=== PATIENT | female | born 1960 | race Caucasian/White ===

== ENCOUNTER 2018-12-12 12:48 | Inpatient (IN) | payer OTHER ==
[2018-12-12 13:34] VITALS: BMI 29.2
--- NOTE | 2018-12-12 15:33 | HP ---
COWS - Scale Resting Pulse: 1= RI 81-100 Sweatin=Flushed/Facial Moisture Restless Observation: 1= Difficult to Sit Still Pupil Size: 0= Normal to Room Light Bone or Joint Aches: 2= Severe Diffuse Aches Runny Nose/ Eye Tearin= Runny Nose/Eyes GI Upset > 30mins: 3= Vomiting/Diarrhea Tremor Observation: 2= Slight Tremor Visible Yawning Observation: 2= >3x During Session Anxiety or Irritability: 4=Extreme Anxiety Goose Flesh Skin: 3=Piloerection COWS Score: 22 CIWA Score - Admission Criteria OASAS Guidelines: Admission for Medically Managed Detox: Requires at least one of the followin. CIWA greater than 12 2. Seizures within the past 24 hours 3. Delirium tremens within the past 24 hours 4. Hallucinations within the past 24 hours 5. Acute intervention needed for co occurring medical disorder 6. Acute intervention needed for co occurring psychiatric disorder 7. Severe withdrawal that cannot be handled at a lower level of care (continued vomiting, continued diarrhea, abnormal vital signs) requiring intravenous medication and/or fluids 8. Admitting History and Physical - Admission History Source: Patient Limitations to Obtaining History: No Limitations Admission ROS [facility] Chief Complaint: Merle Hopson is a 58 year old female who is presenting for heroin detox. Allergies/Adverse Reactions: Allergies Allergy/AdvReac Type Severity Reaction Status Date / Time No Known Allergies Allergy Verified 12/12/18 13:18 History of Present Illness: Merle Hopson is a 58 year old female who is presenting for heroin detox. Heroin: uses 4-5 bags per day. Last use was 2 days prior. Has been using for 17 years. Inhales. Denies IVDU. Denies overdose. Denies having a Narcan kit at home and has never used one. Has never been on a methadone maintenance program. Has been on methadone in the past for pain. Has more than 1 dealer. Denies use of other substances. Has been on several drugs methadone, oxy, benzos in the last couple of days to try and help the symptoms of withdrawal. Has never been detox in the past. Has been to rehab many years in the past. Is interested in outpatient rehab after completing detox because she has a job that she wants to go back to. Wants to go on a methadone program. 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 - Ebola screening Have you traveled outside of the country in the last 21 days: No Have you had contact with anyone from an Ebola affected area: No Do you have a fever: No - Review of Systems Constitutional: Chills, Loss of Appetite, Weakness EENT: reports: Nose Congestion, Other (rhinnorhea) Respiratory: reports: No Symptoms reported Cardiac: reports: Palpitations GI: reports: Diarrhea, Nausea, Vomiting, Abdominal cramping : reports: No Symptoms Reported Musculoskeletal: reports: Back Pain, Muscle Pain, Neck Pain Integumentary: reports: No Symptoms Reported Neuro: reports: Headache, Tremors, Weakness Endocrine: reports: No Symptoms Reported Hematology: reports: Blood Clots Psychiatric: reports: Judgement Intact, Agitated, Anxious, Depressed Patient History - Patient Medical History Hx Anemia: No Hx Asthma: Yes Hx Chronic Obstructive Pulmonary Disease (COPD): No Hx Cancer: No (has lump on breast she is being followed for) Hx Cardiac Disorders: No Hx Congestive Heart Failure: No Hx Hypertension: No Hx Hypercholesterolemia: No Hx Pacemaker: No HX Cerebrovascular Accident: Yes (hx of weakness on one side, no residual weakness) Hx Seizures: Yes (?hx when found unconscious, not secondary to an overdose) Hx Dementia: No Hx Diabetes: No Hx Gastrointestinal Disorders: No Hx Liver Disease: No Hx Genitourinary Disorders: No Hx Sexually Transmitted Disorders: No Hx Renal Disease (ESRD): No Hx Thyroid Disease: No Hx Human Immunodeficiency Virus (HIV): No Hx Hepatitis C: No Hx Depression: Yes Hx Suicide Attempt: No Hx Bipolar Disorder: No Hx Schizophrenia: No - Patient Surgical History Hx Neurologic Surgery: No Hx Cataract Extraction: No Hx Cardiac Surgery: No Hx Lung Surgery: No Hx Breast Surgery: No Hx Breast Biopsy: No Hx Abdominal Surgery: No Hx Appendectomy: No Hx Cholecystectomy: No Hx Genitourinary Surgery: No Hx Section: No Hx Orthopedic Surgery: No Hx Hysterectomy: Yes Other Surgical History: hx of blood clot removal - PPD History Previous Implant?: No Documented Results: Negative w/o proof Implanted On Prior [facility] Admission?: No PPD to be Administered?: Yes - Reproductive History Patient is a Female of Child Bearing Age (11 -55 yrs old): No Patient : No - Smoking Cessation Smoking history: Current every day smoker Have you smoked in the past 12 months: Yes Aproximately how many cigarettes per day: 10 Initiated information on smoking cessation: Yes 'Breaking Loose' booklet given: 12/12/18 - Substance & Tx. History Hx Alcohol Use: Yes Hx Substance Use: Yes Substance Use Type: Heroin, Opiates - Substances abused Heroin Substance route: Inhalation Frequency: Daily Amount used: 10 bags or more Age of first use: 58 Date of last use: 12/10/18 Admission Physical Exam [facility] - Vital Signs Vital Signs: Vital Signs - 24 hr 12/12/18 13:15 Temperature 97.7 F Pulse Rate 91 H Respiratory 18 Rate Blood Pressure 129/79 - Physical General Appearance: Yes: Moderate Distress, Sweating, Anxious HEENTM: Yes: Normocephalic, Normal Voice, DAY, Other (dry mucous membranes) Respiratory: Yes: Lungs Clear, Normal Breath Sounds, No Respiratory Distress, No Accessory Muscle Use Neck: Yes: No masses,lesions,Nodules, Trachea in good position Breast: Yes: Breast Exam Deferred Cardiology: Yes: Regular Rhythm, Regular Rate, S1, S2 Abdominal: Yes: Normal Bowel Sounds, Non Tender, Flat, Soft Genitourinary: Yes: Within Normal Limits Musculoskeletal: Yes: Back pain, Muscle weakness Extremities: Yes: Other (bilateral lymphedema noted) Neurological: Yes: lightning rod installer II-XII NML intact, Alert, Motor Strength 5/5 Integumentary: Yes: Normal Color, Dry, Warm - Diagnostic (1) Heroin abuse Current Visit: Yes Status: Acute (2) Asthma Current Visit: Yes Status: Acute (3) History of DVT (deep vein thrombosis) Current Visit: Yes Status: Acute (4) History of pulmonary embolus (PE) Current Visit: Yes Status: Acute (5) History of CVA (cerebrovascular accident) Current Visit: Yes Status: Acute (6) Edema of both feet Current Visit: Yes Status: Acute Cleared for Admission S - Detox or Rehab [facility] Level of Care: Medically Managed Detox Regimen/Protocol: Methadone Breathalyzer - Breathalyzer Breathalyzer: 0 Urine Drug Screen - Test Device Lot number: [id number] Expiration date: 08/12/20 - Control Is test valid?: Yes - Results Drug screen NEGATIVE: No Urine drug screen results: MOP-Opiates, OXY-Oxycodone, MTD-Methadone, BZO- Benzodiazepines Inpatient Rehab Admission - Rehab Decision to Admit Inpatient rehab admission?: No
--- NOTE | 2018-12-12 16:03 | PN ---
Teaching Attending Note Name of Resident: Saroj Champion ATTENDING PHYSICIAN STATEMENT I saw and evaluated the patient. I reviewed the resident's note and discussed the case with the resident. I agree with the resident's findings and plan as documented. SUBJECTIVE: 58 yo with h/o PE/DVT, h/o asthma, here for heroin detox. Last use 2 days ago. Has been using for the last 17 years. COWS-22 OBJECTIVE: Vital Signs - 24 hr 12/12/18 13:15 Temperature 97.7 F Pulse Rate 91 H Respiratory 18 Rate Blood Pressure 129/79 alert and oriented tremulous ASSESSMENT AND PLAN: Heroin use disorder- methadone detox
[2018-12-12] MEDS ORDERED: MENTHOL/PHENOL 1 EACH UD MM PRN (16:10)
[2018-12-12] MEDS ORDERED: MAG HYDROX/AL HYDROX/SIMETH 30 ML UNIT-DOSE CUP PO PRN (16:10)
[2018-12-12] MEDS ORDERED: MAGNESIUM HYDROX 2400MG/30ML ORAL SUSPENSION 30 ML CUP PO PRN (16:10)
[2018-12-12] MEDS ORDERED: ACETAMINOPHEN 325 MG TABLET (FP) PO PRN ×2 (16:10)
[2018-12-12] MEDS ORDERED: MAGNESIUM CITRATE 300 ML BOTTLE PO PRN (16:10)
[2018-12-12] MEDS ORDERED: hydrOXYzine PAMOATE 25 MG CAPSULE (FP) PO PRN (16:10)
[2018-12-12] MEDS ORDERED: IBUPROFEN 400 MG TABLET (FP) PO PRN (16:10)
[2018-12-12] MEDS ORDERED: BISMUTH SUBSALICYLATE 524 MG/30 ML UD PO PRN (16:10)
[2018-12-12] MEDS ORDERED: METHADONE HCL 10 MG TABLET (FOR DETOX USE ONLY) PO ONE (17:15)
[2018-12-12] MEDS: GABAPENTIN 300 MG CAPSULE (FP) PO SCH (22:22)
[2018-12-12] MEDS: MELATONIN 5 MG TABLETS PO PRN (22:23)
[2018-12-12] MEDS: THIAMINE HCL 100 MG TABLET (FP) PO SCH (22:23)
[2018-12-13] MEDS: GABAPENTIN 300 MG CAPSULE (FP) PO SCH ×3 (05:49→21:13)
[2018-12-13] MEDS ORDERED: METHADONE HCL 5 MG TABLET (FOR DETOX USE ONLY) ONE (08:35)
[2018-12-13] MEDS ORDERED: METHADONE HCL 10 MG TABLET (FOR DETOX USE ONLY) ONE (08:35)
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
[2018-12-13] MEDS ORDERED: METHADONE (DETOX) 20 MG, METHADONE (DETOX) 5 MG PO ONE (10:00)
--- NOTE | 2018-12-13 10:14 | EKG ---
Test Reason : Blood Pressure : / mmHG Vent. Rate : 064 BPM Atrial Rate : 064 BPM P-R Int : 160 ms QRS Dur : 090 ms QT Int : 408 ms P-R-T Axes : 064 043 015 degrees QTc Int : 420 ms NORMAL SINUS RHYTHM NORMAL ECG NO PREVIOUS ECGS AVAILABLE Confirmed by Rom Bazzi MD ([id number]) on 12/13/2018 10:13:55 AM Referred By: LAUREN MURRAY RES Confirmed By:Rom Bazzi MD
[2018-12-13] MEDS: PRENATAL VITAMINS W/ FOLIC ACID TABLET (FP) PO SCH (10:16)
[2018-12-13] MEDS: METHOCARBAMOL 500 MG TABLET PO PRN ×2 (10:16→17:14)
[2018-12-13] MEDS: NICOTINE 21 MG/24 HOURS TOPICAL PATCH TD SCH (10:18)
[2018-12-13 12:06] LABS: HEMATOCRIT 37.2 % (32.4-45.2); HEMOGLOBIN 12.6 GM/dL (10.7-15.3); MCH 30.7 pg (25.7-33.7); MCHC 33.9 g/dl (32.0-36.0); MEAN CELL VOLUME 90.6 fl (80-96); MEAN PLT VOLUME 10.1 fl (7.5-11.1); PLATELET COUNT 183 K/MM3 (134-434); RBC 4.11 M/mm3 (3.60-5.2); RDW 14.5 % (11.6-15.6); WHITE BLOOD COUNT 2.7 K/mm3 (4.0-10.0)
[2018-12-13 12:44] LABS: ALBUMIN 3.6 g/dl (3.4-5.0); BILIRUBIN,TOTAL 0.6 mg/dL (0.2-1); BLOOD UREA NITROGEN 14.9 mg/dL (7-18); CALCIUM 8.9 mg/dL (8.5-10.1); CREATININE 0.7 mg/dL (0.55-1.3); TOT PROT 6.6 g/dl (6.4-8.2)
[2018-12-13] MEDS: LIDOCAINE 5% TOPICAL PATCH TP SCH (12:46)
[2018-12-13] MEDS: CITALOPRAM HYDROBROMIDE 20 MG TABLET (FP) PO SCH (12:46)
[2018-12-13 13:22] LABS: SICKLE CELL SCREEN NEGATIVE (NEGATIVE)
--- NOTE | 2018-12-13 15:04 | PN ---
BHS COWS - Scale Resting Pulse: 1= [place] 81-100 Sweatin= Chills/Flushing Restless Observation: 1= Difficult to Sit Still Pupil Size: 0= Normal to Room Light Bone or Joint Aches: 2= Severe Diffuse Aches Runny Nose/ Eye Tearin= None GI Upset > 30mins: 0= None Tremor Observation of Outstretched Hands: 2= Slight Tremor Visible Yawning Observation: 1= 1-2x During Session Anxiety or Irritability: 4=Extreme Anxiety Goose Flesh Skin: 3=Piloerection COWS Score: 15 BHS Progress Note (SOAP) Subjective: Anxious (Severe), Restless, Tremors, Body Aches. Objective: PATIENT A & O X 1 (UNCERTAIN ABOUT CURRENT DAY/ DATE AND ABOUT CURRENT LOCATION) . PATIENT OBSERVED AMBULATING ON DETOX UNIT UNASSISTED. IN NO ACUTE DISTRESS. 12/13/18 15:00 Vital Signs Temperature 97.9 F 12/13/18 13:26 Pulse Rate 81 12/13/18 13:26 Respiratory Rate 18 12/13/18 13:26 Blood Pressure 108/66 12/13/18 13:26 O2 Sat by Pulse Oximetry (%) Laboratory Tests 12/13/18 12/13/18 12/13/18 08:45 08:45 08:45 WBC 2.7 L RBC 4.11 Hgb 12.6 Hct 37.2 MCV 90.6 MCH 30.7 MCHC 33.9 RDW 14.5 Plt Count 183 MPV 10.1 Sickle Cell Screen Negative Sodium 139 Potassium 4.0 Chloride 105 Carbon Dioxide 24 Anion Gap 9 BUN 14.9 Creatinine 0.7 Est GFR (CKD-EPI)AfAm 109.91 Est GFR (CKD-EPI)NonAf 94.84 Random Glucose 62 L Calcium 8.9 Total Bilirubin 0.6 AST 17 ALT 19 Alkaline Phosphatase 86 Total Protein 6.6 Albumin 3.6 HIV 1&2 Antibody Screen Negative HIV P24 Antigen Negative LABS NOTED. DETOX ADMISSION RPR RESULT PENDING. 12/13/18 15:01 Assessment: 12/13/18 15:01 WITHDRAWAL SYMPTOMS. LEUKOPENIA. 12/13/18 15:02 Plan: CONTINUE DETOX. PRN ROBAXIN PO FOR BODY ACHES / MUSCLE SPASMS. LIDODERM PATCH FOR LOWER BACK PAIN. PATIENT (IN COLLABORATION WITH HEALTH EDUCATION ASSISTANT Queta ROMERO) REQUESTS TO BE DISCHARGED FROM DETOX UNIT ON WEDNESDAY, , SO THAT SHE MAY RETURN TO [facility] THAT SHE ATTENDED IN PAST FOR RE-INSTATEMENT BEFORE THE WEEKEND BEGINS. PATIENT'S CURRENT DETOX MEDICATION REGIMEN (METHADONE) MODIFIED ACCORDINGLY.
[2018-12-13] MEDS: cloNIDine HCL 0.1 MG TABLET PO PRN (17:14)
[2018-12-13] MEDS: LIDOCAINE PATCH REMOVAL MC SCH (21:12)
[2018-12-13] MEDS: THIAMINE HCL 100 MG TABLET (FP) PO SCH (21:13)
[2018-12-13] MEDS: AMITRIPTYLINE HCL 25 MG TABLET (FP) PO SCH (21:13)
[2018-12-13] MEDS: hydrOXYzine PAMOATE 25 MG CAPSULE (FP) PO PRN (21:14)
[2018-12-13] MEDS: MELATONIN 5 MG TABLETS PO PRN (21:14)
[2018-12-13] MEDS: NICOTINE POLACRILEX 2 MG GUM BUC PRN (21:15)
[2018-12-14] MEDS: GABAPENTIN 300 MG CAPSULE (FP) PO SCH ×3 (06:01→21:28)
[2018-12-14] MEDS: NICOTINE POLACRILEX 2 MG GUM BUC PRN (09:16)
[2018-12-14] MEDS ORDERED: MELATONIN 5 MG TABLETS PO PRN (09:25)
[2018-12-14] MEDS ORDERED: METHADONE HCL 10 MG TABLET (FOR DETOX USE ONLY) PO ONE (10:00)
[2018-12-14] MEDS: METHOCARBAMOL 500 MG TABLET PO PRN ×2 (10:01→16:54)
[2018-12-14] MEDS: PRENATAL VITAMINS W/ FOLIC ACID TABLET (FP) PO SCH (10:01)
[2018-12-14] MEDS: CITALOPRAM HYDROBROMIDE 20 MG TABLET (FP) PO SCH (10:01)
[2018-12-14] MEDS: LIDOCAINE 5% TOPICAL PATCH TP SCH (10:05)
[2018-12-14] MEDS: NICOTINE 21 MG/24 HOURS TOPICAL PATCH TD SCH (10:05)
[2018-12-14 12:27] LABS: RPR REACTIVE 1:1 (NONREACTIVE)
[2018-12-14 13:00] LABS: TREPONEMA ANTIBODY REACTIVE (NONREACTIVE)
--- NOTE | 2018-12-14 14:59 | PN ---
BHS COWS - Scale Resting Pulse: 0= MD 80 or Below Sweatin= Chills/Flushing Restless Observation: 1= Difficult to Sit Still Pupil Size: 0= Normal to Room Light Bone or Joint Aches: 0= None Runny Nose/ Eye Tearin= None GI Upset > 30mins: 0= None Tremor Observation of Outstretched Hands: 2= Slight Tremor Visible Yawning Observation: 1= 1-2x During Session Anxiety or Irritability: 4=Extreme Anxiety Goose Flesh Skin: 0=Smooth Skin COWS Score: 9 BHS Progress Note (SOAP) Subjective: Interrupted Sleep, Anxious (Severe), Restless, Tremors, Sweating. Objective: PATIENT A & O X 1 (UNCERTAIN ABOUT CURRENT DAY/ DATE AND ABOUT CURRENT LOCATION) . PATIENT OBSERVED AMBULATING ON DETOX UNIT UNASSISTED. IN NO ACUTE DISTRESS. 12/14/18 14:53 Vital Signs Temperature 98.7 F 12/14/18 13:06 Pulse Rate 75 12/14/18 13:06 Respiratory Rate 18 12/14/18 13:06 Blood Pressure 104/67 12/14/18 13:06 O2 Sat by Pulse Oximetry (%) Laboratory Tests 12/13/18 12/13/18 12/13/18 08:45 08:45 08:45 WBC 2.7 L RBC 4.11 Hgb 12.6 Hct 37.2 MCV 90.6 MCH 30.7 MCHC 33.9 RDW 14.5 Plt Count 183 MPV 10.1 Sickle Cell Screen Negative Sodium 139 Potassium 4.0 Chloride 105 Carbon Dioxide 24 Anion Gap 9 BUN 14.9 Creatinine 0.7 Est GFR (CKD-EPI)AfAm 109.91 Est GFR (CKD-EPI)NonAf 94.84 Random Glucose 62 L Calcium 8.9 Total Bilirubin 0.6 AST 17 ALT 19 Alkaline Phosphatase 86 Total Protein 6.6 Albumin 3.6 RPR Titer Reactive 1:1 H T.pallidum Ab (MHA) Reactive HIV 1&2 Antibody Screen HIV P24 Antigen 12/13/18 08:45 WBC RBC Hgb Hct MCV MCH MCHC RDW Plt Count MPV Sickle Cell Screen Sodium Potassium Chloride Carbon Dioxide Anion Gap BUN Creatinine Est GFR (CKD-EPI)AfAm Est GFR (CKD-EPI)NonAf Random Glucose Calcium Total Bilirubin AST ALT Alkaline Phosphatase Total Protein Albumin RPR Titer T.pallidum Ab (MHA) HIV 1&2 Antibody Screen Negative HIV P24 Antigen Negative LABS NOTED. DETOX ADMISSION RPR RESULT NOTED: REACTIVE 1:1 (MHATP: PREVIOUSLY REACTIVE). PATIENT REPORTS HISTORY OF MEMORY LOSS AND THAT SHE DOES NOT RECALL WHETHER OR NOT SHE WAS TREATED FOR SYPHILIS IN THE PAST. WILL DISCUSS FURTHER WITH PATIENT AND DETERMINE WHETHER OR NOT TO INITIATE TREATMENT. 12/14/18 15:00 Assessment: 12/14/18 14:55 WITHDRAWAL SYMPTOMS. REACTIVE RPR. LEUKOPENIA. Plan: CONTINUE DETOX. INCREASE DAILY PO WATER INTAKE. PATIENT NOTED TO HAVE HISTORY OF CVA/TIA AND PE/DVT ON DETOX ADMISSION H & P INTAKE. PATIENT REPORTS THAT SHE HAD BEEN PRESCRIBED PROHYLACTIC ANTI-CLOTTING MEDICATION IN PAST, BUT THAT SHE STOPPED TAKING THE MEDIATION (MANY YEARS AGO) ON HER OWN, WITHOUT CONSULTING HER MEDICAL PROVIDER, BECAUSE SHE DID NOT LIKE THE WAY THAT THE MEDICATION MADE HER FEEL. PATIENT REFUSED TO TAKE ASPIRIN (81 MG PO DAILY) AT THIS TIME BECAUSE SHE SAYS THAT IT "UPSETS HER STOMACH TOO MUCH. " PATIENT ADVISED TO FOLLOW-UP WITH LIVESTOCK FARMWORKER SOON POSSIBLE AFTER DISCHARGE FROM DETOX FOR GENERAL MEDICAL ASSESSMENT AND FOR HISTORY OF OF CVA/TIA AND FOR DVT/PE AND FOR SUBSEQUENT LONG-TERM TREATMENT. PATIENT VERBALIZED UNDERSTANDING OF RECOMMENDATION.
[2018-12-14] MEDS: hydrOXYzine PAMOATE 25 MG CAPSULE (FP) PO PRN ×2 (16:54→21:28)
[2018-12-14] MEDS: cloNIDine HCL 0.1 MG TABLET PO PRN (17:59)
[2018-12-14] MEDS: THIAMINE HCL 100 MG TABLET (FP) PO SCH (21:27)
[2018-12-14] MEDS: AMITRIPTYLINE HCL 25 MG TABLET (FP) PO SCH (21:28)
[2018-12-14] MEDS: LIDOCAINE PATCH REMOVAL MC SCH (21:30)
[2018-12-15] MEDS: GABAPENTIN 300 MG CAPSULE (FP) PO SCH ×3 (06:00→21:45)
[2018-12-15] MEDS: NICOTINE POLACRILEX 2 MG GUM BUC PRN (08:23)
[2018-12-15] MEDS ORDERED: METHADONE HCL 10 MG TABLET (FOR DETOX USE ONLY) ONE (08:29)
[2018-12-15] MEDS ORDERED: METHADONE HCL 5 MG TABLET (FOR DETOX USE ONLY) ONE (08:30)
[2018-12-15] MEDS ORDERED: METHADONE (DETOX) 10 MG, METHADONE (DETOX) 5 MG PO ONE (10:00)
[2018-12-15] MEDS: LIDOCAINE 5% TOPICAL PATCH TP SCH (10:11)
[2018-12-15] MEDS: PRENATAL VITAMINS W/ FOLIC ACID TABLET (FP) PO SCH (10:11)
[2018-12-15] MEDS: CITALOPRAM HYDROBROMIDE 20 MG TABLET (FP) PO SCH (10:11)
[2018-12-15] MEDS: NICOTINE 21 MG/24 HOURS TOPICAL PATCH TD SCH (10:11)
[2018-12-15] MEDS: hydrOXYzine PAMOATE 25 MG CAPSULE (FP) PO PRN ×3 (10:15→21:45)
[2018-12-15] MEDS ORDERED: PENICILLIN G BENZATHINE 2,400,000 UNIT/4 ML PFS IM ONE (11:30)
--- NOTE | 2018-12-15 17:31 | PN ---
BHS COWS - Scale Resting Pulse: 0= MD 80 or Below Sweatin= Chills/Flushing Restless Observation: 1= Difficult to Sit Still Pupil Size: 0= Normal to Room Light Bone or Joint Aches: 1= Mild Discomfort Runny Nose/ Eye Tearin= None GI Upset > 30mins: 0= None Tremor Observation of Outstretched Hands: 0= None Yawning Observation: 1= 1-2x During Session Anxiety or Irritability: 4=Extreme Anxiety Goose Flesh Skin: 0=Smooth Skin COWS Score: 8 BHS Progress Note (SOAP) Subjective: Anxious, Sweating, Interrupted Sleep. Objective: PATIENT A & O X 1 (UNCERTAIN ABOUT CURRENT DAY/ DATE AND ABOUT CURRENT LOCATION) . PATIENT OBSERVED AMBULATING ON DETOX UNIT UNASSISTED. IN NO ACUTE DISTRESS. 12/15/18 17:24 Vital Signs Temperature 97.2 F L 12/15/18 13:18 Pulse Rate 72 12/15/18 13:18 Respiratory Rate 18 12/15/18 13:18 Blood Pressure 92/62 12/15/18 13:18 O2 Sat by Pulse Oximetry (%) Laboratory Tests 12/13/18 12/13/18 12/13/18 08:45 08:45 08:45 WBC 2.7 L RBC 4.11 Hgb 12.6 Hct 37.2 MCV 90.6 MCH 30.7 MCHC 33.9 RDW 14.5 Plt Count 183 MPV 10.1 Sickle Cell Screen Negative Sodium 139 Potassium 4.0 Chloride 105 Carbon Dioxide 24 Anion Gap 9 BUN 14.9 Creatinine 0.7 Est GFR (CKD-EPI)AfAm 109.91 Est GFR (CKD-EPI)NonAf 94.84 Random Glucose 62 L Calcium 8.9 Total Bilirubin 0.6 AST 17 ALT 19 Alkaline Phosphatase 86 Total Protein 6.6 Albumin 3.6 RPR Titer Reactive 1:1 H T.pallidum Ab (MHA) Reactive HIV 1&2 Antibody Screen HIV P24 Antigen 12/13/18 08:45 WBC RBC Hgb Hct MCV MCH MCHC RDW Plt Count MPV Sickle Cell Screen Sodium Potassium Chloride Carbon Dioxide Anion Gap BUN Creatinine Est GFR (CKD-EPI)AfAm Est GFR (CKD-EPI)NonAf Random Glucose Calcium Total Bilirubin AST ALT Alkaline Phosphatase Total Protein Albumin RPR Titer T.pallidum Ab (MHA) HIV 1&2 Antibody Screen Negative HIV P24 Antigen Negative LABS NOTED. Assessment: 12/15/18 17:25 WITHDRAWAL SYMPTOMS. LEUKOPENIA. REACTIVE RPR. Plan: CONTINUE DETOX. INCREASE DAILY PO WATER INTAKE. PATIENT REPORTS THAT SHE SUFFERS FROM POOR MEMORY AND THAT SHE DOES NOT RECALL IF SHE EVER HAD BEEN TREATED FOR SYPHILIS IN THE PAST OR IF SHE EVEN RECALLS EVER HAVE BEEN TOLD THAT SHE HAS SYPHILIS BY A MEDICAL PROVIDER IN THE PAST. PROPHYLACTIC PRECAUTION, 1ST DOSE OF BICILLIN-LA ORDERED FOR PATIENT FOR TODAY. PATIENT ADVISED TO FOLLOW-UP WITH CARD SORTER DR. DE LA FUENTE ([place], [place] ) AFTER DISCHARGE FROM DETOX UNIT FOR FURTHER MEDICAL EVALUATION AND FOR REACTIVE RPR RESULT NOTED ON DETOX ADMISSION LABORATORY ASSESSMENT. PATIENT VERBALIZED UNDERSTANDING OF RECOMMENDATION. COPIES OF RESULTS OF ALL LABS DRAWN (INCLUDING RPR) WHILE ADMITTED FOR DETOX WILL BE GIVEN TO PATIENT AT TIME OF DISCHARGE FROM DETOX UNIT. APPRAISER AUDITOR AT [facility] ([place], [place]) THAT PATIENT WILL GO TO AFTER DISCHARGE TOMORROW WILL BE CONTACTED TO HELP FACILITATE PROCESS OF GETTING PATIENT TO FOLLOW-UP WITH HER CARD SORTER AFTER DISCHARGE FROM DETOX UNIT IN ORDER TO HAVE TO REMAINING INJECTION OF BICILLIN ADMINISTERED OVER NEXT TWO WEEKS.
[2018-12-15] MEDS: AMITRIPTYLINE HCL 25 MG TABLET (FP) PO SCH (21:45)
[2018-12-15] MEDS: THIAMINE HCL 100 MG TABLET (FP) PO SCH (21:45)
[2018-12-15] MEDS: METHOCARBAMOL 500 MG TABLET PO PRN (21:45)
[2018-12-15] MEDS: LIDOCAINE PATCH REMOVAL MC SCH (21:46)
[2018-12-16] MEDS: GABAPENTIN 300 MG CAPSULE (FP) PO SCH (05:59)
[2018-12-16] MEDS ORDERED: METHADONE HCL 10 MG TABLET (FOR DETOX USE ONLY) PO ONE ×2 (06:00→10:00)
[2018-12-16 07:33] VITALS: BP 104/68; PULSE 75; TEMP 97.9
--- NOTE | 2018-12-16 18:51 | DS ---
[facility] Detox Discharge Summary Admission Date: 12/12/18 Discharge Date: 12/16/18 - History Present History: Opioid Dependence Additional Comments: PATIENT RETURNING HOME, [facility] ([place], [place] ) FOR AFTERCARE. PATIENT RECEIVED FIRST DOSE OF BICILLIN L-A 2.4 MILLION UNITS IM YESTERDAY FOR REACTIVE RPR NOTED NO DETOX ADMISSION LABORATORY ASSESSMENT. PATIENT AGIAN REMINDED TO FOLLOW-UP WITH NURSING ADMINISTRATOR (DR. DE LA FUENTE, [place], [place] ) FOR SUBSEQUENT TWO DOSES OF BICILLIN OVER NEXT TWO WEEKS. PATIENT ALS OADVISED AGAIN TO ADVISE HER PARTNER TO BE TESTED FOR SYPHILIS. PATIENT VERBALIZED UNDERSTANDING OF ALL RECOMMENDATIONS PRESENTED TO HER PRIOR TO DISCHARGE FROM DETOX UNIT. COPIES OF RESULTS OF ALL LABS DRAWN WHILE ADMITTED FOR DETOX, INCLUDING RPR RESULT, GIVEN TO PATIENT AT TIME OF DISCHARGE FROM DETOX UNIT. PATIENT WAS DISCHARGED FROM DETOX UNIT IN STABLE MEDICAL CONDITION. Pertinent Past History: History Of PE, History Of DVT, History Of CVA / TIA, History Of Seizure, Asthma , History Of Edema Of Bilateral Lower Extremities, History Of Hysterectomy, Depressive Disorder, Leukopenia, Reactive RPR. - Physical Exam Results Vital Signs: Vital Signs Temperature 97.9 F 12/16/18 06:00 Pulse Rate 75 12/16/18 06:00 Respiratory Rate 18 12/16/18 06:00 Blood Pressure 104/68 12/16/18 06:00 O2 Sat by Pulse Oximetry (%) Pertinent Admission Physical Exam Findings: WITHDRAWAL SYMPTOMS. Laboratory Tests 12/13/18 12/13/18 12/13/18 08:45 08:45 08:45 WBC 2.7 L RBC 4.11 Hgb 12.6 Hct 37.2 MCV 90.6 MCH 30.7 MCHC 33.9 RDW 14.5 Plt Count 183 MPV 10.1 Sickle Cell Screen Negative Sodium 139 Potassium 4.0 Chloride 105 Carbon Dioxide 24 Anion Gap 9 BUN 14.9 Creatinine 0.7 Est GFR (CKD-EPI)AfAm 109.91 Est GFR (CKD-EPI)NonAf 94.84 Random Glucose 62 L Calcium 8.9 Total Bilirubin 0.6 AST 17 ALT 19 Alkaline Phosphatase 86 Total Protein 6.6 Albumin 3.6 RPR Titer Reactive 1:1 H T.pallidum Ab (MHA) Reactive HIV 1&2 Antibody Screen HIV P24 Antigen 12/13/18 08:45 WBC RBC Hgb Hct MCV MCH MCHC RDW Plt Count MPV Sickle Cell Screen Sodium Potassium Chloride Carbon Dioxide Anion Gap BUN Creatinine Est GFR (CKD-EPI)AfAm Est GFR (CKD-EPI)NonAf Random Glucose Calcium Total Bilirubin AST ALT Alkaline Phosphatase Total Protein Albumin RPR Titer T.pallidum Ab (MHA) HIV 1&2 Antibody Screen Negative HIV P24 Antigen Negative LABS NOTED. - Treatment Hospital Course: Detox Protocol Followed, Detoxed Safely, Responded well, Discharged Condition Good Patient has Accepted a Rehab Referral to: PATIENT WILL ATTEND [facility] ([place], [place]). - Medication Discharge Medications: Ambulatory Orders Amitriptyline HCl [Elavil -] 50 mg PO DAILY 12/12/18 Citalopram Hydrobromide [Citalopram HBr] 40 mg PO DAILY 12/12/18 Gabapentin [Neurontin] 600 mg PO TID 12/12/18 - Diagnosis (1) Depressive disorder Status: Acute (2) Opiate dependence Status: Acute Qualifiers: Substance use status: in withdrawal Qualified Code(s): F11.23 - Opioid dependence with withdrawal (3) Substance induced mood disorder Status: Acute (4) Substance-induced sleep disorder Status: Acute (5) Asthma Status: Acute Qualifiers: Asthma severity: unspecified severity Asthma persistence: unspecified Asthma complication type: uncomplicated Qualified Code(s): J45.909 - Unspecified asthma, uncomplicated (6) Edema of both feet Status: Acute (7) Heroin abuse Status: Acute (8) History of CVA (cerebrovascular accident) Status: Acute (9) History of DVT (deep vein thrombosis) Status: Acute (10) History of pulmonary embolus (PE) Status: Acute (11) Leukopenia Status: Acute Qualifiers: Leukopenia type: unspecified Qualified Code(s): D72.819 - Decreased white blood cell count, unspecified (12) Positive RPR test Status: Acute - AMA Did Patient Leave Against Medical Advice: No BHS COWS - Scale Resting Pulse: 0= [place] 80 or Below Sweatin= No chills or Flushing Restless Observation: 1= Difficult to Sit Still Pupil Size: 0= Normal to Room Light Bone or Joint Aches: 1= Mild Discomfort Runny Nose/ Eye Tearin= None GI Upset > 30mins: 0= None Tremor Observation of Outstretched Hands: 0= None Yawning Observation: 1= 1-2x During Session Anxiety or Irritability: 2=Irritable/Anxious Goose Flesh Skin: 0=Smooth Skin COWS Score: 5
[2018-12-17] MEDS ORDERED: METHADONE HCL 5 MG TABLET (FOR DETOX USE ONLY) PO ONE (06:00)
== END 2018-12-16 07:15 | disposition home or self-care (01) | DRG 773 ==
LOC: YASAS 12:48 → Y3N 16:37
PROVIDERS: ADMIT Surgery; ATTEND Surgery
PROC: HZ2ZZZZ Detoxification Services for Substance Abuse Treatment (ICD-10-PCS; principal; 2018-12-12)
DX: F11.23 Opioid dependence with withdrawal (principal); F17.210 Nicotine dependence, cigarettes, uncomplicated; F19.282 Other psychoactive substance dependence with psychoactive substance-induced sleep disorder; F19.24 Other psychoactive substance dependence with psychoactive substance-induced mood disorder; F32.9 Major depressive disorder, single episode, unspecified; A53.0 Latent syphilis, unspecified as early or late; D72.819 Decreased white blood cell count, unspecified; J45.909 Unspecified asthma, uncomplicated; N63.0 Unspecified lump in unspecified breast; R60.0 Localized edema; Z86.73 Personal history of transient ischemic attack (TIA), and cerebral infarction without residual deficits; Z86.718 Personal history of other venous thrombosis and embolism; Z86.711 Personal history of pulmonary embolism; Z86.69 Personal history of other diseases of the nervous system and sense organs; Z88.6 Allergy status to analgesic agent
CPT/HCPCS: 36415; 80053; 85027; 85660; 86593; 86780; 87389; 93005; 93010; J0735